=== PATIENT | female | born 1990 | race Caucasian/White ===

== ENCOUNTER 2022-11-16 00:29 | Emergency (ER) | payer BC, OTHER ==
[2022-11-16] MEDS ORDERED: Ondansetron 4 MG/2 ML SDV IVPUSH ONE (01:16)
[2022-11-16] MEDS ORDERED: HYDROmorphone 1 MG/ML Syringe IVPUSH ONE (01:16)
[2022-11-16] MEDS ORDERED: Sodium Chloride 0.9% 10 ML Syringe FLUSH PRN (01:32)
[2022-11-16 01:46] LABS: ANION GAP 12.1 mmol/L (5-15)
[2022-11-16] MEDS ORDERED: Promethazine 25 MG/ML SDV IM PRN (02:05)
[2022-11-16 02:22] LABS: THC SCREEN,URINE 50 NG/ML POSITIVE (NEGATIVE)
[2022-11-16 02:23] LABS: BARBITURATE SCREEN,URINE NEGATIVE (NEGATIVE); BENZODIAZEPINES SCREEN,URINE POSITIVE (NEGATIVE); TCA SCREEN,URINE NEGATIVE (NEGATIVE)
[2022-11-16] MEDS ORDERED: levETIRAcetam in NaCl (iso-os) 1,000 MG in Premix Bag 1 BAG IV ONE ×4 (03:15→03:16)
[2022-11-16] MEDS ORDERED: Sodium Chloride 0.9% 50 ML IV ONE (03:41)
[2022-11-16] MEDS ORDERED: levETIRAcetam 500 MG Tab PO SCH (09:00)
== END 2022-11-16 05:00 | disposition home or self-care (01) ==
LOC: KA.ED 00:29 → SUPCPDRO 00:29 → KA.ED 05:00
DX: R56.9 Unspecified convulsions (principal); R51.9 Headache, unspecified; R11.2 Nausea with vomiting, unspecified
CPT/HCPCS: 70450; 80053; 80305-QW; 81001; 83735; 85025; 93010; 96365; 96366; 96372; 96375; 99284; 99284-25; A9270-GY; J1170; J1953; J2405; J2550; J3490